=== PATIENT | female | born 1995 | race Caucasian/White ===

== ENCOUNTER 2019-05-05 22:35 | Emergency (ER) | payer MEDICAID ==
--- NOTE | 2019-05-05 23:19 | EDM.PDOC ---
Addendum entered and electronically signed by Leesa Borja MD 05/06/19 01: 40: Please note that the patient has an allergy to Keflex so I will give her Macrodantin/nitrofurantoin for home. Original Note: <Leesa Borja - Last Filed: 05/06/19 01:15> ED HPI GENERAL MEDICAL PROBLEM - General Chief Complaint: ASPARAGUS BUNCHER Problem Stated Complaint: PT 6WKS AND BLEEDING Time Seen by Provider: 05/05/19 22:49 - History of Present Illness INITIAL COMMENTS - FREE TEXT/NARRATIVE: This is Dr. Borja dictating an addendum note as this case has been endorsed to me at 12 midnight. I reviewed the patient's labs and she does have evidence of a UTI and a urine culture was ordered. Pelvic ultrasound indicates a live IUP at 6 weeks with a trace subchorionic hemorrhage and an ovarian cyst. These also have been relayed to the patient and I will give her Keflex for her UTI and advised close follow-up and care. She's been advised for strict pelvic rest. Please add to impression above--UTI - Related Data Allergies Allergy/AdvReac Type Severity Reaction Status Date / Time cephalexin [From Keflex] Allergy Rash Verified 05/05/19 22:56 sulfamethoxazole Allergy Hives Verified 05/05/19 22:57 [From Septra] trimethoprim [From Septra] Allergy Hives Verified 05/05/19 22:57 Home Meds: Home Meds . [No Known Home Meds] 05/05/19 [History] ED ROS GENERAL - Review of Systems Review Of Systems: ROS reveals no pertinent complaints other than HPI. Course - Vital Signs Last Recorded V/S: Last Vital Signs Temp 36.3 C 05/05/19 22:59 Pulse 95 05/05/19 22:59 Resp 18 05/05/19 22:59 BP 99/65 05/05/19 22:59 Pulse Ox 98 05/05/19 22:59 - Orders/Labs/Meds Orders: Active Orders 24 hr Category Date Time Status CULTURE URINE [RM] Stat Lab 05/06/19 00:25 Received Labs: Laboratory Tests 05/05/19 05/05/19 05/05/19 Range/Units 23:03 23:03 23:03 WBC 9.45 (4.0-11.0) K/uL RBC 4.65 (4.30-5.90) M/uL Hgb 14.3 (12.0-16.0) g/dL Hct 40.3 (36.0-46.0) % MCV 86.7 (80.0-98.0) fL MCH 30.8 (27.0-32.0) pg MCHC 35.5 (31.0-37.0) g/dL RDW Std Deviation 38.7 (28.0-62.0) fl RDW Coeff of [place] 12 (11.0-15.0) % Plt Count 270 (150-400) K/uL MPV 9.10 (7.40-12.00) fL Neut % (Auto) 61.2 (48.0-80.0) % Lymph % (Auto) 32.8 (16.0-40.0) % [place] % (Auto) 4.6 (0.0-15.0) % Eos % (Auto) 1.2 (0.0-7.0) % Baso % (Auto) 0.2 (0.0-1.5) % Neut # (Auto) 5.8 H (1.4-5.7) K/uL Lymph # (Auto) 3.1 H (0.6-2.4) K/uL [place] # (Auto) 0.4 (0.0-0.8) K/uL Eos # (Auto) 0.1 (0.0-0.7) K/uL Baso # (Auto) 0.0 (0.0-0.1) K/uL Nucleated RBC % 0.0 /100WBC Nucleated RBCs # 0 K/uL Sodium 139 (136-145) mmol/L Potassium 3.4 L (3.5-5.1) mmol/L Chloride 105 (98-107) mmol/L Carbon Dioxide 23.3 (21.0-32.0) mmol/L BUN 8 (7.0-18.0) mg/dL Creatinine 0.6 (0.6-1.0) mg/dL Est Cr Clr Drug Dosing 103.85 mL/min Estimated GFR (MDRD) > 60.0 ml/min Glucose 114 H (74-106) mg/dL Calcium 9.3 (8.5-10.1) mg/dL Total Bilirubin 0.2 (0.2-1.0) mg/dL AST 13 L (15-37) IU/L ALT 18 (14-63) IU/L Alkaline Phosphatase 63 (46-116) U/L Total Protein 6.9 (6.4-8.2) g/dL Albumin 3.4 (3.4-5.0) g/dL Globulin 3.5 (2.6-4.0) g/dL Albumin/Globulin Ratio 1.0 (0.9-1.6) HCG, Qual (NEG) HCG, Quant 62698.0 mIU/mL Urine Color Urine Appearance Urine pH (5.0-8.0) Ur Specific [place] (1.001-1.035) Urine Protein (NEGATIVE) mg/dL Urine Glucose (UA) (NEGATIVE) mg/dL Urine Ketones (NEGATIVE) mg/dL Urine Occult Blood (NEGATIVE) Urine Nitrite (NEGATIVE) Urine Bilirubin (NEGATIVE) Urine Urobilinogen (<2.0) EU/dL Ur Leukocyte Esterase (NEGATIVE) Urine RBC (0-2/HPF) Urine WBC (0-5/HPF) Ur Epithelial Cells (NONE-FEW) Amorphous Sediment (NEGATIVE) Urine Bacteria (NEGATIVE) Urine Mucus (NONE-MOD) Blood Type O POSITIVE 05/05/19 05/05/19 Range/Units 23:03 23:32 WBC (4.0-11.0) K/uL RBC (4.30-5.90) M/uL Hgb (12.0-16.0) g/dL Hct (36.0-46.0) % MCV (80.0-98.0) fL MCH (27.0-32.0) pg MCHC (31.0-37.0) g/dL RDW Std Deviation (28.0-62.0) fl RDW Coeff of [place] (11.0-15.0) % Plt Count (150-400) K/uL MPV (7.40-12.00) fL Neut % (Auto) (48.0-80.0) % Lymph % (Auto) (16.0-40.0) % [place] % (Auto) (0.0-15.0) % Eos % (Auto) (0.0-7.0) % Baso % (Auto) (0.0-1.5) % Neut # (Auto) (1.4-5.7) K/uL Lymph # (Auto) (0.6-2.4) K/uL [place] # (Auto) (0.0-0.8) K/uL Eos # (Auto) (0.0-0.7) K/uL Baso # (Auto) (0.0-0.1) K/uL Nucleated RBC % /100WBC Nucleated RBCs # K/uL Sodium (136-145) mmol/L Potassium (3.5-5.1) mmol/L Chloride (98-107) mmol/L Carbon Dioxide (21.0-32.0) mmol/L BUN (7.0-18.0) mg/dL Creatinine (0.6-1.0) mg/dL Est Cr Clr Drug Dosing mL/min Estimated GFR (MDRD) ml/min Glucose (74-106) mg/dL Calcium (8.5-10.1) mg/dL Total Bilirubin (0.2-1.0) mg/dL AST (15-37) IU/L ALT (14-63) IU/L Alkaline Phosphatase (46-116) U/L Total Protein (6.4-8.2) g/dL Albumin (3.4-5.0) g/dL Globulin (2.6-4.0) g/dL Albumin/Globulin Ratio (0.9-1.6) HCG, Qual POSITIVE H (NEG) HCG, Quant mIU/mL Urine Color YELLOW Urine Appearance CLOUDY Urine pH 7.0 (5.0-8.0) Ur Specific [place] 1.020 (1.001-1.035) Urine Protein NEGATIVE (NEGATIVE) mg/dL Urine Glucose (UA) NEGATIVE (NEGATIVE) mg/dL Urine Ketones NEGATIVE (NEGATIVE) mg/dL Urine Occult Blood LARGE H (NEGATIVE) Urine Nitrite NEGATIVE (NEGATIVE) Urine Bilirubin NEGATIVE (NEGATIVE) Urine Urobilinogen 0.2 (<2.0) EU/dL Ur Leukocyte Esterase NEGATIVE (NEGATIVE) Urine RBC 0-2 (0-2/HPF) Urine WBC 8-11 (0-5/HPF) Ur Epithelial Cells MODERATE (NONE-FEW) Amorphous Sediment MODERATE (NEGATIVE) Urine Bacteria 2+ H (NEGATIVE) Urine Mucus MODERATE (NONE-MOD) Blood Type Departure - Departure Time of Disposition: 01:16 Disposition: Home, Self-Care 01 Condition: Good Clinical Impression: Threatened UTI (urinary tract infection) Qualifiers: Urinary tract infection type: site unspecified Hematuria presence: without hematuria Qualified Code(s): N39.0 - Urinary tract infection, site not specified - Discharge Information Instructions: Threatened Miscarriage, Urinary Tract Infection, Adult, Easy-to- Read Referrals: PCP,None [Primary Care Provider] - Forms: ED Department Discharge Additional Instructions: The following information is given to patients seen in the emergency department who are being discharged to home. This information is to outline your options for follow-up care. We provide all patients seen in our emergency department with a follow-up referral. The need for follow-up, as well as the timing and circumstances, are variable depending upon the specifics of your emergency department visit. If you don't have a primary care physician on staff, we will provide you with a referral. We always advise you to contact your personal physician following an emergency department visit to inform them of the circumstance of the visit and for follow-up with them and/or the need for any referrals to a consulting specialist. The emergency department will also refer you to a specialist when appropriate. This referral assures that you have the opportunity for follow-up care with a specialist. All of these measure are taken in an effort to provide you with optimal care, which includes your follow-up. Under all circumstances we always encourage you to contact your private physician who remains a resource for coordinating your care. When calling for follow-up care, please make the office aware that this follow-up is from your recent emergency room visit. If for any reason you are refused follow-up, please contact the Emergency Department at and asked to speak to the emergency department charge nurse. [facility] [address] [place] [id number] 1. Use Tylenol as directed for pain and discomfort. Take medication as prescribed. You have been given nitrofurantoin for the infection 2. Follow-up with a an ACCOUNT DEVELOPMENT EXECUTIVE M.D. and you have been given resources above. Strict pelvic rest and nothing in vagina until you're followed up in the clinic Return to the ED as needed and as discussed. <Tianna Byrd - Last Filed: 05/06/19 08:08> ED HPI GENERAL MEDICAL PROBLEM - General Source of Information: Reports: Patient History Limitations: Reports: No Limitations - History of Present Illness INITIAL COMMENTS - FREE TEXT/NARRATIVE: HISTORY AND PHYSICAL: History of present illness: Patient is a 23-year-old female presents to the ED today with concern of vaginal bleeding and cramping in early . Patient states she believes to be approximately 6 weeks in gestation. Patient states over the course of the last week she has had pink spotting only when she wiped. Patient states starting today it has turned bright red and has now needed to use a pad. Patient states she is only used one pad since onset of symptoms today. Patient states along with the bleeding she also has had lower abdominal cramping. Patient denies any other symptoms or concerns at this time. Patient denies fever, chills, chest pain, shortness of breath, or cough. Denies headache, neck stiff ness, change in vision, syncope, or near syncope. Denies nausea, vomiting, diarrhea, constipation, or dysuria. Has not noted any blood in urine or stool. Patient has been eating and drinking appropriately. Review of systems: As per history of present illness and below otherwise all systems reviewed and negative. Past medical history: As per history of present illness and as reviewed below otherwise noncontributory. Surgical history: As per history of present illness and as reviewed below otherwise noncontributory. Social history: See social history for further information Family history: As per history of present illness and as reviewed below otherwise noncontributory. Physical exam: General: Patient is alert, oriented, and in no acute distress. Patient sitting comfortably on exam table. HEENT: Atraumatic, normocephalic, pupils equal and reactive bilaterally, negative for conjunctival pallor or scleral icterus, mucous membranes moist, TMs normal bilaterally, throat clear, neck supple, nontender, trachea midline. No drooling or trismus noted. No meningeal signs. No hot potato voice noted. Lungs: Clear to auscultation, breath sounds equal bilaterally, chest nontender. Heart: S1S2, regular rate and rhythm without overt murmur Abdomen: Soft, nondistended. Mild suprapubic tenderness. Negative for masses or hepatosplenomegaly. Negative for costovertebral tenderness. Pelvis: Stable nontender. Genitourinary: Deferred. Rectal: Deferred. Skin: Intact, warm, dry. No lesions or rashes noted. Extremities: Atraumatic, negative for cords or calf pain. Neurovascular unremarkable. Neuro: Awake, alert, oriented. Cranial nerves II through XII unremarkable. Cerebellum unremarkable. Motor and sensory unremarkable throughout. Exam nonfocal. Notes: Discussed the importance for follow-up with her ASPARAGUS BUNCHER/women's health provider. Voices understanding and is agreeable to plan of care. Denies any further questions or concerns at this time. Diagnostics: CBC, CMP, UA, hCG Quant/Qual, blood type, 1st trimester US Therapeutics: None Prescription: None Impression: Threatened Plan: 1. Please start and/or continue to take your vitamin with folic acid once daily. 2. Pelvic rest until cleared by your OBGYN (no tampons, sex, etc...) 3. Tylenol as needed for pain management. This is safe to use in . 4. Follow up with your ASPARAGUS BUNCHER as discussed. Return to the ED as needed and as discussed. Definitive disposition and diagnosis as appropriate pending reevaluation and review of above. lower abdominal Pain Score (Numeric/FACES): 4 Past Medical History HEENT History: Reports: None Cardiovascular History: Reports: None Respiratory History: Reports: None Gastrointestinal History: Reports: None Genitourinary History: Reports: None ASPARAGUS BUNCHER History: Reports: Spontaneous Musculoskeletal History: Reports: None Neurological History: Reports: None Psychiatric History: Reports: None Endocrine/Metabolic History: Reports: None Hematologic History: Reports: None Oncologic (Cancer) History: Reports: None Dermatologic History: Reports: None - Infectious Disease History Infectious Disease History: Reports: Chicken Pox Social & Family History - Family History Family Medical History: Noncontributory - Tobacco Use Smoking Status *Q: Current Every Day Smoker Years of Tobacco use: 10 Packs/Tins Daily: 1 - Recreational Drug Use Recreational Drug Use: No ED ROS GENERAL - Review of Systems Review Of Systems: ROS reveals no pertinent complaints other than HPI. ED EXAM, GENERAL - Physical Exam Exam: See Below (See dictation)
[2019-05-05 23:48] LABS: BLOOD UREA NITROGEN,BUN 8 mg/dL (7.0-18.0); CARBON DIOXIDE,CO2 23.3 mmol/L (21.0-32.0); CHLORIDE,CL 105 mmol/L (98-107); GLUCOSE RANDOM 114 mg/dL (74-106); POTASSIUM,K 3.4 mmol/L (3.5-5.1); SODIUM,NA 139 mmol/L (136-145)
--- NOTE | 2019-05-06 01:17 | US ---
INDICATION: Vaginal spotting with pelvic cramping TECHNIQUE: Ultrasound OB pelvis transvaginal. Real time neri scale imaging of the pelvis was performed. COMPARISON: None FINDINGS: Gestational sac: Sonographic imaging demonstrates a single intrauterine gestation with a normal appearance. A trace subchorionic hemorrhage is noted.The amount of fluid within the sac appears appropriate for gestational age. Fetus: The embryo demonstrates a regular cardiac rate measuring 114 beats per minute. The embryo`s crown rump length measurement of 3 mm corresponds to a gestational age of 6 weeks. There are no gross abnormalities noted within the embryo at this early state of development. There is a normal appearing yolk sac. Placenta: The placenta has not yet developed. Pelvis: The visualized cervix is closed. The visualized myometrium appears normal. There is a septated cyst in the right ovary measuring 11 x 8 mm.. No significant ascites noted. IMPRESSION: 1. Single viable intrauterine with an estimated gestational age of 6 weeks. 2. A trace subchorionic hemorrhage is noted. Dictated by Jarett Muller MD @ 05/06/2019 1:14:40 AM Dictated by: Jarett Muller MD @ 05/06/2019 01:14:44 (Electronically Signed)
== END 2019-05-06 01:45 | disposition home or self-care (01) ==
LOC: MW.ED 22:35
DX: O20.0 Threatened abortion (principal); O23.41 Unspecified infection of urinary tract in pregnancy, first trimester; O99.331 Smoking (tobacco) complicating pregnancy, first trimester; F17.210 Nicotine dependence, cigarettes, uncomplicated; Z3A.01 Less than 8 weeks gestation of pregnancy; Z88.8 Allergy status to other drugs, medicaments and biological substances; Z88.1 Allergy status to other antibiotic agents
CPT/HCPCS: 36415; 76801; 76801-26; 80053; 81001; 84702; 84703; 85025; 86900; 86901; 87086; 99283; 99284-25

== ENCOUNTER 2019-07-03 10:18 | Emergency (ER) | payer MEDICAID ==
[2019-07-03] MEDS ORDERED: Ondansetron 4 MG/2 ML SDV IVPUSH ONE (10:41)
[2019-07-03] MEDS ORDERED: Sodium Chloride 0.9% 1,000 ML IV ONE (10:41)
--- NOTE | 2019-07-03 10:50 | EDM.PDOC ---
ED HPI GENERAL MEDICAL PROBLEM - General Chief Complaint: Gastrointestinal Problem Stated Complaint: DEHYDRATION Time Seen by Provider: 07/03/19 10:36 Source of Information: Reports: Patient History Limitations: Reports: No Limitations - History of Present Illness INITIAL COMMENTS - FREE TEXT/NARRATIVE: HISTORY AND PHYSICAL: History of present illness: Patient is a 24-year-old female presents to the ED today with concern of dehydration, nausea, and vomiting in . Patient states also over the past 1-2 days she's had some burning with urination and is unsure if it is because her urine is more concentrated or she has a urinary tract infection. Patient states she has moved [place] recently and has not established an OB/ PALLET RECTIFIER care. Patient states she does have an SHEARER OPERATOR back in her hometown that she has seen a few times. Patient states she was prescribed Diclegis for nausea from her hometown SHEARER OPERATOR and never picked it up from the pharmacy because of financial reasons. Patient states she has not established care here in [place] also because of financial reasons. Patient states that she has not eaten any solid foods over the past 2 days but has had a few cups of fluids. Patient denies any other symptoms or concerns. Patient denies fever, chills, chest pain, shortness of breath, or cough. Denies headache, neck stiff ness, change in vision, syncope, or near syncope. Denies abdominal pain, diarrhea, constipation. Has not noted any blood in urine or stool, Review of systems: As per history of present illness and below otherwise all systems reviewed and negative. Past medical history: As per history of present illness and as reviewed below otherwise noncontributory. Surgical history: As per history of present illness and as reviewed below otherwise noncontributory. Social history: See social history for further information Family history: As per history of present illness and as reviewed below otherwise noncontributory. Physical exam: General: Patient is alert, oriented, and in no acute distress. Patient sitting comfortably on exam table. HEENT: Atraumatic, normocephalic, pupils equal and reactive bilaterally, negative for conjunctival pallor or scleral icterus, mucous membranes dry, TMs normal bilaterally, throat clear, neck supple, nontender, trachea midline. No drooling or trismus noted. No meningeal signs. No hot potato voice noted. Lungs: Clear to auscultation, breath sounds equal bilaterally, chest nontender. Heart: S1S2, regular rate and rhythm without overt murmur Abdomen: Soft, nondistended, nontender. Negative for masses or hepatosplenomegaly. Negative for costovertebral tenderness. Pelvis: Stable nontender. Genitourinary: Deferred. Rectal: Deferred. Skin: Intact, warm, dry. No lesions or rashes noted. Extremities: Atraumatic, negative for cords or calf pain. Neurovascular unremarkable. Neuro: Awake, alert, oriented. Cranial nerves II through XII unremarkable. Cerebellum unremarkable. Motor and sensory unremarkable throughout. Exam nonfocal. Notes: Discussed the importance for follow-up with her SHEARER OPERATOR/womens health provider and encourage patient to get established care here in [place] as she plans to live here. Voices understanding and is agreeable to plan of care. Denies any further questions or concerns at this time. Diagnostics: CBC, CMP, UA, urine hCG Therapeutics: NS, Zofran Prescription: Macrobid, Pyridium Impression: Urinary tract infection Dehydration Plan: 1. Encourage small but frequent sips of fluid to prevent dehydration. Take medication as prescribed. 2. You can use Tylenol as directed for pain and discomfort. This is safe to use in . 3. Follow-up with an SHEARER OPERATOR/women's health care provider as discussed. Return to the ED as needed and as discussed. Definitive disposition and diagnosis as appropriate pending reevaluation and review of above. left lower back Pain Score (Numeric/FACES): 5 - Related Data Allergies Allergy/AdvReac Type Severity Reaction Status Date / Time cephalexin [From Keflex] Allergy Rash Verified 07/03/19 10:28 sulfamethoxazole Allergy Hives Verified 07/03/19 10:28 [From Septra] trimethoprim [From ] Allergy Hives Verified 07/03/19 10:28 Home Meds: Home Meds . [No Known Home Meds] 05/05/19 [History] Past Medical History HEENT History: Reports: None Cardiovascular History: Reports: None Respiratory History: Reports: None Gastrointestinal History: Reports: None Genitourinary History: Reports: None SHEARER OPERATOR History: Reports: Spontaneous Musculoskeletal History: Reports: None Neurological History: Reports: None Psychiatric History: Reports: None Endocrine/Metabolic History: Reports: None Hematologic History: Reports: None Oncologic (Cancer) History: Reports: None Dermatologic History: Reports: None - Infectious Disease History Infectious Disease History: Reports: Chicken Pox Social & Family History - Family History Family Medical History: Noncontributory - Tobacco Use Smoking Status *Q: Never Smoker - Recreational Drug Use Recreational Drug Use: No ED ROS GENERAL - Review of Systems Review Of Systems: ROS reveals no pertinent complaints other than HPI. ED EXAM, GENERAL - Physical Exam Exam: See Below (See dictation) Course - Vital Signs Last Recorded V/S: Last Vital Signs Temp 96.7 F 07/03/19 10:28 Pulse 98 07/03/19 10:28 Resp 18 07/03/19 10:28 BP 119/62 07/03/19 10:28 Pulse Ox 97 07/03/19 10:28 - Orders/Labs/Meds Orders: Active Orders 24 hr Category Date Time Status CULTURE URINE [RM] Stat Lab 07/03/19 11:38 Received Labs: Laboratory Tests 07/03/19 07/03/19 07/03/19 Range/Units 10:30 10:30 11:38 WBC 7.59 (4.0-11.0) K/uL RBC 4.73 (4.30-5.90) M/uL Hgb 14.3 (12.0-16.0) g/dL Hct 40.5 (36.0-46.0) % MCV 85.6 (80.0-98.0) fL MCH 30.2 (27.0-32.0) pg MCHC 35.3 (31.0-37.0) g/dL RDW Std Deviation 39.0 (28.0-62.0) fl RDW Coeff of [place] 12 (11.0-15.0) % Plt Count 249 (150-400) K/uL MPV 9.20 (7.40-12.00) fL Neut % (Auto) 71.2 (48.0-80.0) % Lymph % (Auto) 25.0 (16.0-40.0) % [place] % (Auto) 2.8 (0.0-15.0) % Eos % (Auto) 0.9 (0.0-7.0) % Baso % (Auto) 0.1 (0.0-1.5) % Neut # (Auto) 5.4 (1.4-5.7) K/uL Lymph # (Auto) 1.9 (0.6-2.4) K/uL [place] # (Auto) 0.2 (0.0-0.8) K/uL Eos # (Auto) 0.1 (0.0-0.7) K/uL Baso # (Auto) 0.0 (0.0-0.1) K/uL Nucleated RBC % 0.0 /100WBC Nucleated RBCs # 0 K/uL Sodium 138 (136-145) mmol/L Potassium 3.4 L (3.5-5.1) mmol/L Chloride 104 (98-107) mmol/L Carbon Dioxide 21.1 (21.0-32.0) mmol/L BUN 5 L (7.0-18.0) mg/dL Creatinine 0.5 L (0.6-1.0) mg/dL Est Cr Clr Drug Dosing 123.54 mL/min Estimated GFR (MDRD) > 60.0 ml/min Glucose 82 (74-106) mg/dL Calcium 8.7 (8.5-10.1) mg/dL Total Bilirubin 0.4 (0.2-1.0) mg/dL AST 21 (15-37) IU/L ALT 25 (14-63) IU/L Alkaline Phosphatase 51 (46-116) U/L Total Protein 7.9 (6.4-8.2) g/dL Albumin 3.4 (3.4-5.0) g/dL Globulin 4.5 H (2.6-4.0) g/dL Albumin/Globulin Ratio 0.8 L (0.9-1.6) Urine Color DARK YELLOW Urine Appearance SLT CLOUDY Urine pH 7.0 (5.0-8.0) Ur Specific [place] 1.015 (1.001-1.035) Urine Protein NEGATIVE (NEGATIVE) mg/dL Urine Glucose (UA) NEGATIVE (NEGATIVE) mg/dL Urine Ketones TRACE H (NEGATIVE) mg/dL Urine Occult Blood NEGATIVE (NEGATIVE) Urine Nitrite NEGATIVE (NEGATIVE) Urine Bilirubin NEGATIVE (NEGATIVE) Urine Urobilinogen 1.0 (<2.0) EU/dL Ur Leukocyte Esterase SMALL H (NEGATIVE) Urine RBC 0-2 (0-2/HPF) Urine WBC 5-10 (0-5/HPF) Ur Epithelial Cells MODERATE (NONE-FEW) Urine Bacteria 1+ H (NEGATIVE) Urine Mucus HEAVY (NONE-MOD) Urine HCG, Qual (NEGATIVE) 07/03/19 Range/Units 11:38 WBC (4.0-11.0) K/uL RBC (4.30-5.90) M/uL Hgb (12.0-16.0) g/dL Hct (36.0-46.0) % MCV (80.0-98.0) fL MCH (27.0-32.0) pg MCHC (31.0-37.0) g/dL RDW Std Deviation (28.0-62.0) fl RDW Coeff of [place] (11.0-15.0) % Plt Count (150-400) K/uL MPV (7.40-12.00) fL Neut % (Auto) (48.0-80.0) % Lymph % (Auto) (16.0-40.0) % [place] % (Auto) (0.0-15.0) % Eos % (Auto) (0.0-7.0) % Baso % (Auto) (0.0-1.5) % Neut # (Auto) (1.4-5.7) K/uL Lymph # (Auto) (0.6-2.4) K/uL [place] # (Auto) (0.0-0.8) K/uL Eos # (Auto) (0.0-0.7) K/uL Baso # (Auto) (0.0-0.1) K/uL Nucleated RBC % /100WBC Nucleated RBCs # K/uL Sodium (136-145) mmol/L Potassium (3.5-5.1) mmol/L Chloride (98-107) mmol/L Carbon Dioxide (21.0-32.0) mmol/L BUN (7.0-18.0) mg/dL Creatinine (0.6-1.0) mg/dL Est Cr Clr Drug Dosing mL/min Estimated GFR (MDRD) ml/min Glucose (74-106) mg/dL Calcium (8.5-10.1) mg/dL Total Bilirubin (0.2-1.0) mg/dL AST (15-37) IU/L ALT (14-63) IU/L Alkaline Phosphatase (46-116) U/L Total Protein (6.4-8.2) g/dL Albumin (3.4-5.0) g/dL Globulin (2.6-4.0) g/dL Albumin/Globulin Ratio (0.9-1.6) Urine Color Urine Appearance Urine pH (5.0-8.0) Ur Specific [place] (1.001-1.035) Urine Protein (NEGATIVE) mg/dL Urine Glucose (UA) (NEGATIVE) mg/dL Urine Ketones (NEGATIVE) mg/dL Urine Occult Blood (NEGATIVE) Urine Nitrite (NEGATIVE) Urine Bilirubin (NEGATIVE) Urine Urobilinogen (<2.0) EU/dL Ur Leukocyte Esterase (NEGATIVE) Urine RBC (0-2/HPF) Urine WBC (0-5/HPF) Ur Epithelial Cells (NONE-FEW) Urine Bacteria (NEGATIVE) Urine Mucus (NONE-MOD) Urine HCG, Qual POSITIVE (NEGATIVE) Meds: Medications Discontinued Medications Generic Name Dose Route Start Last Admin Trade Name Freq PRN Reason Stop Dose Admin Sodium Chloride 1,000 mls @ 999 mls/hr 07/03/19 10:41 07/03/19 10:51 Normal Saline IV 07/03/19 11:41 999 mls/hr BOLUS ONE Administration Ondansetron HCl 4 mg 07/03/19 10:41 07/03/19 10:51 Zofran IVPUSH 07/03/19 10:42 4 mg ONETIME ONE Administration Departure - Departure Time of Disposition: 12:11 Disposition: Home, Self-Care 01 Clinical Impression: UTI, Urinary tract infectious disease, Dehydration - Discharge Information Referrals: PCP,Not In Area [Primary Care Provider] - Forms: ED Department Discharge Additional Instructions: The following information is given to patients seen in the emergency department who are being discharged to home. This information is to outline your options for follow-up care. We provide all patients seen in our emergency department with a follow-up referral. The need for follow-up, as well as the timing and circumstances, are variable depending upon the specifics of your emergency department visit. If you don't have a primary care physician on staff, we will provide you with a referral. We always advise you to contact your personal physician following an emergency department visit to inform them of the circumstance of the visit and for follow-up with them and/or the need for any referrals to a consulting specialist. The emergency department will also refer you to a specialist when appropriate. This referral assures that you have the opportunity for follow-up care with a specialist. All of these measure are taken in an effort to provide you with optimal care, which includes your follow-up. Under all circumstances we always encourage you to contact your private physician who remains a resource for coordinating your care. When calling for follow-up care, please make the office aware that this follow-up is from your recent emergency room visit. If for any reason you are refused follow-up, please contact the [facility] Emergency Department at and asked to speak to the emergency department charge nurse. [facility] Primary Care [address] [place], [place] [id number] [facility] [address] [place] [address] [facility] [address] [place] [address] 1. Encourage small but frequent sips of fluid to prevent dehydration. Take medication as prescribed. 2. You can use Tylenol as directed for pain and discomfort. This is safe to use in . 3. Follow-up with an SHEARER OPERATOR/women's health care provider as discussed. Return to the ED as needed and as discussed. - My Orders Last 24 Hours: My Active Orders 07/03/19 11:38 CULTURE URINE [RM] Stat - Assessment/Plan Last 24 Hours: My Active Orders 07/03/19 11:38 CULTURE URINE [RM] Stat
[2019-07-03 11:11] LABS: BLOOD UREA NITROGEN,BUN 5 mg/dL (7.0-18.0); CARBON DIOXIDE,CO2 21.1 mmol/L (21.0-32.0); CHLORIDE,CL 104 mmol/L (98-107); GLUCOSE RANDOM 82 mg/dL (74-106); POTASSIUM,K 3.4 mmol/L (3.5-5.1); SODIUM,NA 138 mmol/L (136-145)
== END 2019-07-03 12:19 | disposition home or self-care (01) ==
LOC: MW.ED 10:18
DX: O23.42 Unspecified infection of urinary tract in pregnancy, second trimester (principal); O99.282 Endocrine, nutritional and metabolic diseases complicating pregnancy, second trimester; E86.0 Dehydration; Z3A.14 14 weeks gestation of pregnancy; Z88.1 Allergy status to other antibiotic agents; Z88.2 Allergy status to sulfonamides
CPT/HCPCS: 36415; 80053; 81001; 81025; 85025; 87086; 96361; 96374; 99284; J2405; J7040; 99283

== ENCOUNTER 2019-12-22 22:57 | Observation (INO) | payer MEDICAID ==
[2019-12-23] MEDS ORDERED: Sodium Chloride 0.9% 10 ML Syringe FLUSH PRN (00:45)
[2019-12-23] MEDS ORDERED: Nalbuphine 10 MG/1 ML Vial IVPUSH PRN (00:45)
[2019-12-23] MEDS ORDERED: Oxytocin/0.9 % Sodium Chloride 30 UNIT/500 ML BAG IV SCH (00:45)
[2019-12-23] MEDS ORDERED: Sodium Chloride 0.9% 2.5 ML Syringe FLUSH PRN (00:45)
[2019-12-23] MEDS ORDERED: Methylergonovine 0.2 MG/1 ML Amp IM PRN (00:45)
[2019-12-23] MEDS ORDERED: Misoprostol 200 MCG Tab PO PRN (00:45)
[2019-12-23] MEDS ORDERED: Carboprost Tromethamine 250 MCG/1 ML Amp IM PRN (00:45)
[2019-12-23] MEDS ORDERED: Lidocaine 1% 50 ML MDV INJECT PRN (00:45)
[2019-12-23] MEDS ORDERED: Lactated Ringers 1,000 ML IV SCH (00:45)
[2019-12-23] MEDS ORDERED: Tranexamic Acid 1,000 MG in Sodium Chloride 0.9% 100 ML IV PRN (00:45)
[2019-12-23] MEDS ORDERED: Butorphanol 1 MG/ML SDV IVPUSH PRN (00:45)
[2019-12-23] MEDS ORDERED: Water For Irrigation,Sterile 1,000 ML Container IRR PRN (00:45)
[2019-12-23] MEDS ORDERED: Sodium Chloride 0.9% 10 ML SDV IV PRN (00:45)
[2019-12-23] MEDS ORDERED: Famotidine 20 MG Tab PO ONE (08:07)
[2019-12-23] MEDS ORDERED: Famotidine 20 MG Tab ONE (08:10)
--- NOTE | 2020-01-11 14:56 | PN ---
This is for the observation admission for 12/23/2019. Ms. Turner is 24-year-old patient. She is term. She came to Labor and Delivery with irregular contractions and painful contraction. However, the patient's vital signs are stable and heart rate essentially is normal. The patient was examined twice. She was not dilated. However, because the patient lived not close to the hospital, and we will like to observe her for extended period of time, the patient is admitted for observation and later on after 12-hour observation there was no change in her status, so the patient was discharged home with instructions to be followed in the clinic. REBECCA / SAEED /[id number]
== END 2019-12-23 09:51 | disposition home or self-care (01) ==
LOC: MW.OB 22:57 → MW.OBCHECK 22:57 → MW.OB 12-23 00:30 → MW.OBCHECK 12-23 00:30
PROVIDERS: ADMIT Obstetrics & Gynecology; ATTEND Obstetrics & Gynecology
DX: O47.1 False labor at or after 37 completed weeks of gestation (principal); Z3A.39 39 weeks gestation of pregnancy
CPT/HCPCS: 36415; 59025; 84112; 85027; 86592; 86593; 86850; 86900; 86901; 96374; A9270; G0378; J2300; J7120

== ENCOUNTER 2019-12-29 00:18 | Inpatient (IN) | payer MEDICAID ==
[2019-12-29] MEDS ORDERED: Sodium Chloride 0.9% 10 ML Syringe FLUSH PRN (00:45)
[2019-12-29] MEDS ORDERED: Methylergonovine 0.2 MG/1 ML Amp IM PRN (00:45)
[2019-12-29] MEDS ORDERED: Oxytocin/0.9 % Sodium Chloride 30 UNIT/500 ML BAG IV SCH ×3 (00:45→02:15)
[2019-12-29] MEDS ORDERED: Tranexamic Acid 1,000 MG in Sodium Chloride 0.9% 100 ML IV PRN (00:45)
[2019-12-29] MEDS ORDERED: Lidocaine 1% 50 ML MDV INJECT PRN (00:45)
[2019-12-29] MEDS ORDERED: Carboprost Tromethamine 250 MCG/1 ML Amp IM PRN (00:45)
[2019-12-29] MEDS ORDERED: Misoprostol 25 MCG (1/4 of 100 MCG) Tab PO PRN (00:45)
[2019-12-29] MEDS ORDERED: Butorphanol 1 MG/ML SDV IVPUSH PRN (00:45)
[2019-12-29] MEDS ORDERED: Misoprostol 25 MCG (1/4 of 100 MCG) Tab VAG PRN (00:45)
[2019-12-29] MEDS ORDERED: Water For Irrigation,Sterile 1,000 ML Container IRR PRN (00:45)
[2019-12-29] MEDS ORDERED: Sodium Chloride 0.9% 10 ML SDV IV PRN (00:45)
[2019-12-29] MEDS ORDERED: Misoprostol 200 MCG Tab PO PRN (00:45)
[2019-12-29] MEDS ORDERED: Terbutaline 1 MG/ML SDV SUBCUT PRN (00:45)
[2019-12-29] MEDS ORDERED: Sodium Chloride 0.9% 2.5 ML Syringe FLUSH PRN (00:45)
[2019-12-29] MEDS ORDERED: Calcium Carbonate 500 MG Tab.Chew PO PRN (02:15)
[2019-12-29] MEDS ORDERED: Calcium Carbonate 500 MG Tab.Chew ONE (02:21)
[2019-12-29] MEDS: Nalbuphine 10 MG/1 ML Vial IVPUSH PRN ×2 (02:36→04:05)
[2019-12-29] MEDS: Lactated Ringers 1,000 ML IV SCH ×5 (02:38→11:45)
[2019-12-29] MEDS ORDERED: Morphine 10 MG/ML Syringe IVPUSH ONE (04:30)
[2019-12-29] MEDS ORDERED: Promethazine 25 MG/ML SDV IM ONE (04:33)
[2019-12-29] MEDS ORDERED: fentaNYL 100 MCG/2 ML SDV ONE ×2 (06:16→17:34)
[2019-12-29] MEDS ORDERED: Ropivacaine HCl/PF 100 ML ONE ×2 (06:16→17:33)
[2019-12-29] MEDS ORDERED: Ropivacaine 0.2% PF 2 MG/ML 20 ML SDV ONE (06:16)
--- NOTE | 2019-12-29 06:22 | PCM.LDHP ---
L&D History of Present Illness - General Date of Service: 12/29/19 Admit Problem/Dx: Patient Status Order with Admit Dx/Problem 12/29/19 00:45 Patient Status [ADT] Routine Admission Diagnosis/Problem Admission Diagnosis/Problem - planned 12/29/19 06:19 Ping is a 24 yo at 40.0 weeks that presents today for elective IOL. O pos , RI, GBS neg. 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 Source of Information: Patient History Limitations: Reports: No Limitations - History of Present Illness Pain Score: 5 Associated Symptoms: Reports: N - Related Data Allergies/Adverse Reactions: Allergies Allergy/AdvReac Type Severity Reaction Status Date / Time cephalexin [From Keflex] Allergy Rash Verified 12/22/19 23:17 sulfamethoxazole Allergy Hives Verified 12/22/19 23:17 [From Septra] trimethoprim [From Septra] Allergy Hives Verified 12/22/19 23:17 Home Medications: Home Meds Pnv No.103/Folic/Om3s/Fish Oil [ Gummies] 1 each PO DAILY 09/01/19 [ History] Past Medical History HEENT History: Reports: Otitis Media (Not current) Cardiovascular History: Reports: None Respiratory History: Reports: None Gastrointestinal History: Reports: None Genitourinary History: Reports: UTI, Recurrent (Not current) 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: , Spontaneous (X3) : 3 Para: 0 LMP (Approximate): Musculoskeletal History: Reports: None Other Musculoskeletal History: L4-L5 bulging disc Neurological History: Reports: Other (See Below) Other Neuro History: Siaticia Psychiatric History: Reports: Anxiety, Bipolar, Depression, Panic Attack, Suicide Attempt Other Psychiatric History: Suicidal attempt [id number] Endocrine/Metabolic History: Reports: None Hematologic History: Reports: None Immunologic History: Reports: None Oncologic (Cancer) History: Reports: None Dermatologic History: Reports: None - Infectious Disease History Infectious Disease History: Reports: Chicken Pox - Past Surgical History HEENT Surgical History: Reports: None Cardiovascular Surgical History: Reports: None Respiratory Surgical History: Reports: None GI Surgical History: Reports: None Female Surgical History: Reports: None Neurological Surgical History: Reports: None Musculoskeletal Surgical History: Reports: None Social & Family History - Family History Family Medical History: Noncontributory HEENT: Reports: Cataract, Otitis Media Cardiac: Reports: Bypass, Hypertension, [place] Respiratory: Reports: Sleep Apnea : Reports: Other (See Below) Other Family History: Kidney replacement x2 OBGYN: Reports: Musculoskeletal: Reports: Arthritis Neurological: Reports: CVA Psychiatric: Reports: Depression Endocrine/Metabolic: Reports: Diabetes, Type I Dermatologic: Reports: Eczema Oncologic: Reports: Breast, Skin - Tobacco Use Smoking Status *Q: Never Smoker Second Hand Smoke Exposure: No - Caffeine Use Caffeine Use: Reports: Soda - Recreational Drug Use Recreational Drug Use: No H&P Review of Systems - Review of Systems: Review Of Systems: Comprehensive ROS is negative, except as noted in HPI. General: Reports: No Symptoms HEENT: Reports: No Symptoms Pulmonary: Reports: No Symptoms Cardiovascular: Reports: No Symptoms Gastrointestinal: Reports: No Symptoms Genitourinary: Reports: No Symptoms Musculoskeletal: Reports: No Symptoms Skin: Reports: No Symptoms Psychiatric: Reports: No Symptoms Neurological: Reports: No Symptoms Hematologic/Lymphatic: Reports: No Symptoms Immunologic: Reports: No Symptoms L&D Exam - Exam Exam: See Below - Vital Signs Weight: 153 lb - OB Specific Fundal Height In cm: 40 Heart Tones per Min: 125 Heart Rate (FHR) Variability: Moderate (6-25 bmp) Presentation: Vertex - Hunter Score Hunter Score Cervix Position: Posterior Hunter Score Consistency: Medium Hunter Score Effacement: 51-70% Hunter Score Dilation: 1-2 cm Hunter Score Infant's Station: -2 Hunter Score Total: 5 - Exam General: Alert, Oriented HEENT: Conjunctiva Clear, EACs Clear, EOMI, Hearing Intact, Mucosa Moist & [place] , PERRLA Neck: Supple, Trachea Midline Lungs: Clear to Auscultation, Normal Respiratory Effort Cardiovascular: Regular Rate, Regular Rhythm GI/Abdominal Exam: Normal Bowel Sounds, Soft, Non-Tender, No Organomegaly, No Distention, Other (Gravid uterus) Rectal Exam: Deferred Genitourinary: Normal external exam, Normal bimanual exam, Vaginal bleeding (LOF , clear; bloody show) Back Exam: Normal Inspection, Full Range of Motion Extremities: Normal Inspection, Normal Range of Motion, Non-Tender, No Pedal Edema, Normal Capillary Refill Skin: Warm, Dry, Intact Neurological: Strength Equal Bilateral, Normal Speech, Sensation Intact Psychiatric: Alert, Normal Affect, Normal Mood - Patient Data Lab Results Last 24 hrs: Laboratory Results - last 24 hr 12/29/19 12/29/19 Range/Units 01:15 01:15 WBC 7.78 (4.0-11.0) K/uL RBC 4.20 L (4.30-5.90) M/uL Hgb 12.4 (12.0-16.0) g/dL Hct 35.8 L (36.0-46.0) % MCV 85.2 (80.0-98.0) fL MCH 29.5 (27.0-32.0) pg MCHC 34.6 (31.0-37.0) g/dL RDW Std Deviation 37.3 (28.0-62.0) fl RDW Coeff of [place] 12 (11.0-15.0) % Plt Count 223 (150-400) K/uL MPV 10.10 (7.40-12.00) fL Blood Type O POSITIVE Antibody Screen NEGATIVE Result Diagrams: 12/29/19 01:15 - Problem List (1) Encounter for induction of labor SNOMED Code(s): 607490046 ICD Code: Z34.90 - ENCNTR FOR SUPRVSN OF NORMAL , UNSP, UNSP TRIMESTER Status: Acute Priority: High Current Visit: Yes (2) Normal in third trimester SNOMED Code(s): 37744579, 74930382 ICD Code: Z34.93 - ENCNTR FOR SUPRVSN OF NORMAL PREG, UNSP, THIRD TRIMESTER Status: Acute Priority: High Current Visit: Yes (3) 40 weeks gestation of SNOMED Code(s): 07190410 ICD Code: Z3A.40 - 40 WEEKS GESTATION OF Status: Acute Priority : High Current Visit: Yes Problem List Initiated/Reviewed/Updated: Yes Orders Last 24hrs: Active Orders 24 hr Category Date Time Status Patient Status [ADT] Routine ADT 12/29/19 00:45 Active Communication Order [RC] ASDIRECTED Care 12/29/19 00:45 Active Communication Order [RC] ASDIRECTED Care 12/29/19 00:45 Active Communication Order [RC] ASDIRECTED Care 12/29/19 00:45 Active Heart Tones [RC] CONTINUOUS Care 12/29/19 00:45 Active Non Stress Test [RC] PER UNIT ROUTINE Care 12/29/19 00:45 Active May Shower [RC] ASDIRECTED Care 12/29/19 00:45 Active Notify Provider [RC] PRN Care 12/29/19 00:45 Active Notify Provider [RC] PRN Care 12/29/19 00:45 Active Notify Provider [RC] PRN Care 12/29/19 00:45 Active Notify Provider [RC] STAT Care 12/29/19 00:45 Active Oxygen Therapy [RC] ASDIRECTED Care 12/29/19 00:45 Active Up ad Sun [RC] ASDIRECTED Care 12/29/19 00:45 Active Vaginal Exam [RC] PRN Care 12/29/19 00:45 Active Vital Signs [RC] PER UNIT ROUTINE Care 12/29/19 00:45 Active RPR (SYPHILIS SERO) W/ RFLX [REF] Routine Lab 12/29/19 01:15 Received Butorphanol [Stadol] Med 12/29/19 00:45 Active 1 mg IVPUSH Q1H PRN Calcium Carbonate [Tums] Med 12/29/19 02:15 Active 1,000 mg PO Q2HR PRN Carboprost Tromethamine [Hemabate DS] Med 12/29/19 00:45 Active 250 mcg IM ASDIRECTED PRN Lactated Ringers [Ringers, Lactated] 1,000 ml Med 12/29/19 00:45 Active IV ASDIRECTED Lidocaine 1% [Xylocaine 1%] Med 12/29/19 00:45 Active 50 ml INJECT ONETIME PRN Methylergonovine [Methergine] Med 12/29/19 00:45 Active 0.2 mg IM ASDIRECTED PRN Nalbuphine [Nubain] Med 12/29/19 00:45 Active 10 mg IVPUSH Q1H PRN Oxytocin/0.9 % Sodium Chloride [Oxytocin 30 Unit/500 ML Med 12/29/19 00:45 Active -NS] 30 unit in 500 ml IV TITRATE Oxytocin/0.9 % Sodium Chloride [Oxytocin 30 Unit/500 ML Med 12/29/19 00:45 Active -NS] 30 unit in 500 ml IV TITRATE Oxytocin/0.9 % Sodium Chloride [Oxytocin 30 Unit/500 ML Med 12/29/19 02:15 Active -NS] 30 unit in 500 ml IV TITRATE Sodium Chloride 0.9% [Normal Saline] Med 12/29/19 00:45 Active 10 ml IV ASDIRECTED PRN Sodium Chloride 0.9% [Saline Flush] Med 12/29/19 00:45 Active 10 ml FLUSH ASDIRECTED PRN Sodium Chloride 0.9% [Saline Flush] Med 12/29/19 00:45 Active 2.5 ml FLUSH ASDIRECTED PRN Terbutaline [Brethine] Med 12/29/19 00:45 Active 0.25 mg SUBCUT ASDIRECTED PRN Tranexamic Acid [Cyklokapron] 1,000 mg Med 12/29/19 00:45 Active Sodium Chloride 0.9% [Normal Saline] 100 ml IV ONETIME Water For Irrigation,Sterile [Sterile Water for Med 12/29/19 00:45 Active Irrigation] 1,000 ml IRR ASDIRECTED PRN miSOPROStoL [Cytotec] Med 12/29/19 00:45 Active 200 mcg PO ONETIME PRN miSOPROStoL [Cytotec] Med 12/29/19 00:45 Active 25 mcg PO ONETIME PRN miSOPROStoL [Cytotec] Med 12/29/19 00:45 Active 25 mcg VAG Q4H PRN Scalp Electrode [WOMSER] Per Unit Routine Oth 12/29/19 00:45 Ordered Medication Administration Instruction [OM.PC] Q3H Oth 12/29/19 00:45 Ordered Peripheral IV Insertion Adult [OM.PC] Routine Oth 12/29/19 00:45 Ordered Resuscitation Status Routine Resus Stat 12/29/19 00:45 Ordered Medication Orders Butorphanol Tartrate (Stadol) 1 mg IVPUSH Q1H PRN PRN Reason: Pain Calcium Carbonate/Glycine (Tums) 1,000 mg PO Q2HR PRN PRN Reason: Indigestion Carboprost Tromethamine (Hemabate Ds) 250 mcg IM ASDIRECTED PRN PRN Reason: Post Hemorrhage Lactated Ringer's (Ringers, Lactated) 1,000 mls @ 150 mls/hr IV ASDIRECTED [place] Last Admin: 12/29/19 05:01 Dose: 150 mls/hr Infusion: 12/29/19 05:01 Dose: 150 mls/hr Admin: 12/29/19 02:38 Dose: 150 mls/hr Oxytocin/Sodium Chloride (Oxytocin 30 Unit/500 Ml-Ns) 30 unit in 500 mls @ 500 mls/hr IV TITRATE [place] Oxytocin/Sodium Chloride (Oxytocin 30 Unit/500 Ml-Ns) 30 unit in 500 mls @ 2 mls/hr IV TITRATE [place]; Protocol Tranexamic Acid 1,000 mg/ (Sodium Chloride) 110 mls @ 660 mls/hr IV ONETIME PRN PRN Reason: Bleeding Oxytocin/Sodium Chloride (Oxytocin 30 Unit/500 Ml-Ns) 30 unit in 500 mls @ 2 mls/hr IV TITRATE [place]; Protocol Last Infusion: 12/29/19 04:06 Dose: 6 munits/min, 6 mls/hr Infusion: 12/29/19 03:03 Dose: 4 munits/min, 4 mls/hr Admin: 12/29/19 02:39 Dose: 2 munits/min, 2 mls/hr Lidocaine HCl (Xylocaine 1%) 50 ml INJECT ONETIME PRN PRN Reason: Laceration repair Methylergonovine Maleate (Methergine) 0.2 mg IM ASDIRECTED PRN PRN Reason: Post Hemorrhage Misoprostol (Cytotec) 200 mcg PO ONETIME PRN PRN Reason: Post Hemorrhage Misoprostol (Cytotec) 25 mcg PO ONETIME PRN PRN Reason: Cervical Ripening Misoprostol (Cytotec) 25 mcg VAG Q4H PRN PRN Reason: Cervical Ripening Nalbuphine HCl (Nubain) 10 mg IVPUSH Q1H PRN PRN Reason: Pain (severe 7-10) Last Admin: 12/29/19 04:05 Dose: 10 mg Admin: 12/29/19 02:36 Dose: 10 mg Sodium Chloride (Saline Flush) 10 ml FLUSH ASDIRECTED PRN PRN Reason: Keep Vein Open Sodium Chloride (Saline Flush) 2.5 ml FLUSH ASDIRECTED PRN PRN Reason: Keep Vein Open Sodium Chloride (Normal Saline) 10 ml IV ASDIRECTED PRN PRN Reason: IV Use Sterile Water (Sterile Water For Irrigation) 1,000 ml IRR ASDIRECTED PRN PRN Reason: delivery Terbutaline Sulfate (Brethine) 0.25 mg SUBCUT ASDIRECTED PRN PRN Reason: Tacysystole Assessment/Plan Comment:: Continue with elective IOL POC. See orders.
--- NOTE | 2019-12-29 07:19 | PCM.PREANE ---
Preanesthetic Assessment - Procedure Proposed Procedure: KIRIT - Anesthesia/Transfusion/Family Hx Anesthesia History: Prior Anesthesia Without Reaction Family History of Anesthesia Reaction: No Transfusion History: No Prior Transfusion(s) Intubation History: Unknown - Review of Systems General: No Symptoms Pulmonary: No Symptoms Cardiovascular: No Symptoms Gastrointestinal: No Symptoms Neurological: No Symptoms Other: Reports: Anxiety - Physical Assessment NPO Status Date: 12/29/19 NPO Status Time: 06:00 (Clear liquids) Height: 1.5 m Weight: 69.4 kg ASA Class: 2 Mental Status: Alert & Oriented x3 Airway Class: Mallampati = 2 Dentition: Reports: Normal Dentition Thyro-Mental Finger Breadths: 3 Mouth Opening Finger Breadths: 3 ROM/Head Extension: Full Lungs: Clear to Auscultation Cardiovascular: Regular Rate - Lab Values: Laboratory Last Values WBC 7.78 K/uL (4.0-11.0) 12/29/19 01:15 RBC 4.20 M/uL (4.30-5.90) L 12/29/19 01:15 Hgb 12.4 g/dL (12.0-16.0) 12/29/19 01:15 Hct 35.8 % (36.0-46.0) L 12/29/19 01:15 MCV 85.2 fL (80.0-98.0) 12/29/19 01:15 MCH 29.5 pg (27.0-32.0) 12/29/19 01:15 MCHC 34.6 g/dL (31.0-37.0) 12/29/19 01:15 RDW Std Deviation 37.3 fl (28.0-62.0) 12/29/19 01:15 RDW Coeff of [place] 12 % (11.0-15.0) 12/29/19 01:15 Plt Count 223 K/uL (150-400) 12/29/19 01:15 MPV 10.10 fL (7.40-12.00) 12/29/19 01:15 Blood Type O POSITIVE 12/29/19 01:15 Antibody Screen NEGATIVE 12/29/19 01:15 - Allergies Allergies/Adverse Reactions: Allergies Allergy/AdvReac Type Severity Reaction Status Date / Time cephalexin [From Keflex] Allergy Rash Verified 12/22/19 23:17 sulfamethoxazole Allergy Hives Verified 12/22/19 23:17 [From ] trimethoprim [From ] Allergy Hives Verified 12/22/19 23:17 - Blood Blood Available: No Product(s) Available: None - Anesthesia Plan Pre-Op Medication Ordered: None - Acknowledgements Anesthesia Type Planned: Epidural Pt an Appropriate Candidate for the Planned Anesthesia: Yes Alternatives and Risks of Anesthesia Discussed w Pt/Guardian: Yes Pt/Guardian Understands and Agrees with Anesthesia Plan: Yes Additional Comments: Discussed. ? answered. Permit signed. Acceptable candidate. HEIGHT 1.5m. PreAnesthesia Questionnaire HEENT History: Reports: Otitis Media (Not current) Cardiovascular History: Reports: None Respiratory History: Reports: None Gastrointestinal History: Reports: None Genitourinary History: Reports: UTI, Recurrent (Not current) BRAND DIRECTOR History: Reports: , Spontaneous (X3) Musculoskeletal History: Reports: None Other Musculoskeletal History: L4-L5 bulging disc Neurological History: Reports: Other (See Below) Other Neuro History: Siaticia Psychiatric History: Reports: Anxiety, Bipolar, Depression, Panic Attack, Suicide Attempt Other Psychiatric History: Suicidal attempt [id number] Endocrine/Metabolic History: Reports: None Hematologic History: Reports: None Immunologic History: Reports: None Oncologic (Cancer) History: Reports: None Dermatologic History: Reports: None - Infectious Disease History Infectious Disease History: Reports: Chicken Pox - Past Surgical History HEENT Surgical History: Reports: None Cardiovascular Surgical History: Reports: None Respiratory Surgical History: Reports: None GI Surgical History: Reports: None Female Surgical History: Reports: None Neurological Surgical History: Reports: None Musculoskeletal Surgical History: Reports: None - SUBSTANCE USE Smoking Status *Q: Never Smoker Second Hand Smoke Exposure: No Recreational Drug Use History: No - HOME MEDS Home Medications: Home Meds Pnv No.103/Folic/Om3s/Fish Oil [ Gummies] 1 each PO DAILY 09/01/19 [ History] - CURRENT (IN HOUSE) MEDS Current Meds: Current Medications Butorphanol Tartrate (Stadol) 1 mg IVPUSH Q1H PRN PRN Reason: Pain Calcium Carbonate/Glycine (Tums) 1,000 mg PO Q2HR PRN PRN Reason: Indigestion Carboprost Tromethamine (Hemabate Ds) 250 mcg IM ASDIRECTED PRN PRN Reason: Post Hemorrhage Lactated Ringer's (Ringers, Lactated) 1,000 mls @ 150 mls/hr IV ASDIRECTED [place] Last Admin: 12/29/19 06:33 Dose: 150 mls/hr Oxytocin/Sodium Chloride (Oxytocin 30 Unit/500 Ml-Ns) 30 unit in 500 mls @ 500 mls/hr IV TITRATE [place] Oxytocin/Sodium Chloride (Oxytocin 30 Unit/500 Ml-Ns) 30 unit in 500 mls @ 2 mls/hr IV TITRATE [place]; Protocol Tranexamic Acid 1,000 mg/ (Sodium Chloride) 110 mls @ 660 mls/hr IV ONETIME PRN PRN Reason: Bleeding Oxytocin/Sodium Chloride (Oxytocin 30 Unit/500 Ml-Ns) 30 unit in 500 mls @ 2 mls/hr IV TITRATE [place]; Protocol Last Infusion: 12/29/19 04:06 Dose: 6 munits/min, 6 mls/hr Lidocaine HCl (Xylocaine 1%) 50 ml INJECT ONETIME PRN PRN Reason: Laceration repair Methylergonovine Maleate (Methergine) 0.2 mg IM ASDIRECTED PRN PRN Reason: Post Hemorrhage Misoprostol (Cytotec) 200 mcg PO ONETIME PRN PRN Reason: Post Hemorrhage Misoprostol (Cytotec) 25 mcg PO ONETIME PRN PRN Reason: Cervical Ripening Misoprostol (Cytotec) 25 mcg VAG Q4H PRN PRN Reason: Cervical Ripening Nalbuphine HCl (Nubain) 10 mg IVPUSH Q1H PRN PRN Reason: Pain (severe 7-10) Last Admin: 12/29/19 04:05 Dose: 10 mg Sodium Chloride (Saline Flush) 10 ml FLUSH ASDIRECTED PRN PRN Reason: Keep Vein Open Sodium Chloride (Saline Flush) 2.5 ml FLUSH ASDIRECTED PRN PRN Reason: Keep Vein Open Sodium Chloride (Normal Saline) 10 ml IV ASDIRECTED PRN PRN Reason: IV Use Sterile Water (Sterile Water For Irrigation) 1,000 ml IRR ASDIRECTED PRN PRN Reason: delivery Terbutaline Sulfate (Brethine) 0.25 mg SUBCUT ASDIRECTED PRN PRN Reason: Tacysystole Discontinued Medications Calcium Carbonate/Glycine (Tums) Confirm Administered Dose 1,000 mg .ROUTE .STK- MED ONE Stop: 12/29/19 02:22 Last Admin: 12/29/19 02:37 Dose: 1,000 mg Fentanyl (Sublimaze) Confirm Administered Dose 100 mcg .ROUTE .STK-MED ONE Stop: 12/29/19 06:17 Ropivacaine (Naropin 0.2%) Confirm Administered Dose 100 mls @ as directed .ROUTE .STK-MED ONE Stop: 12/29/19 06:17 Morphine Sulfate (Morphine) 5 mg IVPUSH ONETIME ONE Stop: 12/29/19 04:31 Last Admin: 12/29/19 04:57 Dose: 5 mg Promethazine HCl (Phenergan) 25 mg IM ONETIME ONE Stop: 12/29/19 04:34 Last Admin: 12/29/19 04:57 Dose: 25 mg Ropivacaine (Naropin 0.2%) Confirm Administered Dose 20 ml .ROUTE .STK-MED ONE Stop: 12/29/19 06:17
--- NOTE | 2019-12-29 07:25 | PCM.SN.2 ---
- Free Text/Narrative Note: Requested for KIRIT. , active labor, 3cm, pain 9/10 Prep Chloroprep Skin local 4ml 1% lidocaine @ L3-4. Space on first pass with air/saline mix. Reconfirmed with 3ml saline. Cath to 6cm. Occlusive drsg. TEST DOSE NEGATIVE Bolus given slowly. Pain 2/10 post bolus. Infusion started @ 07:26. VSS. Doing well.
[2019-12-29] MEDS ORDERED: Sodium Chloride 0.9% 1,000 ML IV ONE (11:46)
[2019-12-29] MEDS ORDERED: ePHEDrine 50 MG/ML SDV IVPUSH STA (13:20)
[2019-12-29] MEDS ORDERED: Ondansetron 4 MG/2 ML SDV IVPUSH PRN (13:45)
--- NOTE | 2019-12-29 17:54 | PCM.PRNOTE ---
- Free Text/Narrative Note: Anes NOte Epidural infusion is completed. A new 100 cc bag of 0.2% ropivicaine with 1 mcg cc fentanyl started. Rates is 8 cc hr with 6 cc q 20 min prn bolus. Time with patient [id number] Dillon Vasquez CRNA
[2019-12-29] MEDS ORDERED: oxyCODONE 5 MG Tab PO PRN (20:03)
[2019-12-29] MEDS ORDERED: Bisacodyl 10 MG Supp RECTAL PRN (20:03)
[2019-12-29] MEDS ORDERED: Benzocaine/Menthol 20%-0.5% Spray 78 GM Cannister TOP PRN (20:03)
[2019-12-29] MEDS ORDERED: Lanolin 100% Cream 7 GM Tube TOP PRN (20:03)
[2019-12-29] MEDS ORDERED: Docusate Sodium 100 MG Cap PO PRN (20:03)
[2019-12-29] MEDS ORDERED: Acetaminophen 500 MG Tab PO PRN (20:03)
[2019-12-29] MEDS ORDERED: Witch Hazel Medicated Pads 40/Jar TOP PRN (20:03)
[2019-12-29] MEDS ORDERED: Ibuprofen 400 MG Tab PO PRN (20:03)
[2019-12-29] MEDS: Ibuprofen 800 MG Tab PO PRN (21:52)
[2019-12-30] MEDS: Acetaminophen 500 MG Tab PO PRN ×3 (04:49→16:30)
--- NOTE | 2019-12-30 07:34 | PCM48HPAN ---
Post Anesthesia Note - EVALUATION WITHIN 48HRS OF ANESTHETIC Vital Signs in Normal Range: Yes Patient Participated in Evaluation: Yes Respiratory Function Stable: Yes Airway Patent: Yes Cardiovascular Function Stable: Yes Hydration Status Stable: Yes Pain Control Satisfactory: Yes Nausea and Vomiting Control Satisfactory: Yes Mental Status Recovered: Yes Vital Signs: Last Vital Signs Temp 36.4 C 12/30/19 06:00 Pulse 89 12/30/19 06:00 Resp 16 12/30/19 04:45 BP 98/57 L 12/30/19 06:00 Pulse Ox 96 12/30/19 04:45
--- NOTE | 2019-12-30 07:51 | OR ---
SURGEON: Moreno Ha MD DATE OF PROCEDURE: 12/29/2019 DESCRIPTION: Ms. Turner is a 24-year-old primigravida. She is followed in our clinic primarily by our nurse whipper beater, Marion Altman. Her was uncomplicated. Her GBS status was negative, and she was admitted for elective induction. She was induced with Cytotec and Pitocin. She responded to that. She had a spontaneous rupture of the membrane and progress to 3-4 cm. She had epidural anesthesia for labor analgesia. The patient continued to contract, however, she started having some variable deceleration, although is recovering real quickly and good variability, yet required an amnioinfusion to ameliorate these variable deceleration. The patient progressed to complete-complete, she pushed for almost 2 hours, and she was complete-complete vertex +2. When I came to evaluate her, the patient was exhausted. The heart rate still has some variable deceleration, and the heart rate was category II. On examination of the patient, the fetus is in OT and I was able to rotate her manually to occiput anterior, and after consulting with the patient and explaining to her, a Kiwi vacuum extraction is placed in place, and I was able to deliver the fetus without problem. Episiotomy was needed to accomplish the delivery and the manager hris in attendance of the delivery. The fetus cried immediately. score reported to be 8 and 9, and the weight is 7 pounds 1 ounce. The placenta delivered spontaneous, complete, and intact and then repair of the episiotomy was done with 3-0 Vicryl in layers without any problem. Estimated blood loss is 300 to 350 mL. heart rate was category II, and there was no complication in labor and delivery of this fetus. REBECCA / SAEED /[id number] ANDI
--- NOTE | 2019-12-30 08:28 | PCM.DCSUM1 ---
Discharge Summary - Hospital Course Free Text/Narrative:: Discharge home with infant. Follow up in 6 weeks for or sooner if needed. Diagnosis: Stroke: No Modified Varina Scale: No Symptoms at All Modified Varina Scale Score: 0 - Discharge Data Discharge Date: 12/30/19 Discharge Disposition: Home, Self-Care 01 Condition: Good - Referral to Home Health Primary Care Physician: PCP None - Discharge Diagnosis/Problem(s) (1) Vacuum extractor delivery, delivered SNOMED Code(s): 872349227 ICD Code: O66.5 - ATTEMPTED APPLICATION OF VACUUM EXTRACTOR AND FORCEPS Status: Acute Priority: High Current Visit: Yes - Patient Instructions Diet: Usual Diet as Tolerated Activity: As Tolerated, No Strenuous Activities, Rest and Relax Today Driving: May Drive Today Showering/Bathing: May Shower Notify Provider of: Fever, Increased Pain, Swelling and Redness, Nausea and/or Vomiting - Discharge Plan *PRESCRIPTION DRUG MONITORING PROGRAM REVIEWED*: Not Applicable *COPY OF PRESCRIPTION DRUG MONITORING REPORT IN PATIENT HEIDY: Not Applicable Prescriptions/Med Rec: Ibuprofen [Motrin] 800 mg PO Q6H PRN #90 tablet PRN Reason: Pain Home Medications: Home Meds Pnv No.103/Folic/Om3s/Fish Oil [ Gummies] 1 each PO DAILY 09/01/19 [ History] Ibuprofen [Motrin] 800 mg PO Q6H PRN #90 tablet 12/30/19 [Rx] Oxygen Therapy Mode: Room Air Referrals: [facility] [Outside] Marion Altman CNM [Mid-] - 02/09/20 1:30 pm - Discharge Summary/Plan Comment DC Time >30 min.: Yes - General Info Date of Service: 12/30/19 Admission Dx/Problem (Free Text: Patient Status Order with Admit Dx/Problem 12/29/19 00:45 Patient Status [ADT] Routine Admission Diagnosis/Problem Admission Diagnosis/Problem - planned 12/29/19 06:19 Ping is a 24 yo at 40.0 weeks that presents today for elective IOL. O pos , RI, GBS neg. 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 Functional Status: Reports: Pain Controlled, Tolerating Diet, Ambulating, Urinating - Review of Systems General: Reports: No Symptoms HEENT: Reports: No Symptoms Pulmonary: Reports: No Symptoms Cardiovascular: Reports: No Symptoms Gastrointestinal: Reports: No Symptoms Genitourinary: Reports: No Symptoms Musculoskeletal: Reports: No Symptoms Skin: Reports: No Symptoms Neurological: Reports: No Symptoms Psychiatric: Reports: No Symptoms - Patient Data Vitals - Most Recent: Last Vital Signs Temp 36.4 C 12/30/19 06:00 Pulse 89 12/30/19 06:00 Resp 16 12/30/19 04:45 BP 98/57 L 12/30/19 06:00 Pulse Ox 96 12/30/19 04:45 Weight - Most Recent: 69.4 kg I&O - Last 24 hours: Intake & Output 12/29/19 12/30/19 12/30/19 22:59 06:59 14:59 Output Total 1300 Balance -1300 Lab Results - Last 24 hrs: Laboratory Results - last 24 hr 12/30/19 Range/Units 05:38 Hgb 9.8 L (12.0-16.0) g/dL Hct 29.8 L (36.0-46.0) % Med Orders - Current: Current Medications Acetaminophen (Tylenol Extra Strength) 500 mg PO Q4H PRN PRN Reason: Pain Acetaminophen (Tylenol Extra Strength) 1,000 mg PO Q4H PRN PRN Reason: Pain Last Admin: 12/30/19 04:49 Dose: 1,000 mg Benzocaine/Menthol (Dermoplast Pain Relief 20%-0.5% [place]) 78 gm TOP ASDIRECTED PRN PRN Reason: Perineal Comfort Measure Last Admin: 12/29/19 21:50 Dose: 1 applic Bisacodyl (Dulcolax) 10 mg RECTAL ONETIME PRN PRN Reason: Constipation Butorphanol Tartrate (Stadol) 1 mg IVPUSH Q1H PRN PRN Reason: Pain Calcium Carbonate/Glycine (Tums) 1,000 mg PO Q2HR PRN PRN Reason: Indigestion Carboprost Tromethamine (Hemabate Ds) 250 mcg IM ASDIRECTED PRN PRN Reason: Post Hemorrhage Docusate Sodium (Colace) 100 mg PO BID PRN PRN Reason: Constipation Emollient Ointment (Lansinoh Hpa) 0 gm TOP ASDIRECTED PRN PRN Reason: Sore Nipples Last Admin: 12/29/19 21:51 Dose: 1 applic Lactated Ringer's (Ringers, Lactated) 1,000 mls @ 150 mls/hr IV ASDIRECTED [place] Last Admin: 12/29/19 11:45 Dose: 150 mls/hr Oxytocin/Sodium Chloride (Oxytocin 30 Unit/500 Ml-Ns) 30 unit in 500 mls @ 500 mls/hr IV TITRATE [place] Last Admin: 12/29/19 20:42 Dose: 500 mls/hr Oxytocin/Sodium Chloride (Oxytocin 30 Unit/500 Ml-Ns) 30 unit in 500 mls @ 2 mls/hr IV TITRATE [place]; Protocol Tranexamic Acid 1,000 mg/ (Sodium Chloride) 110 mls @ 660 mls/hr IV ONETIME PRN PRN Reason: Bleeding Oxytocin/Sodium Chloride (Oxytocin 30 Unit/500 Ml-Ns) 30 unit in 500 mls @ 2 mls/hr IV TITRATE [place]; Protocol Last Infusion: 12/29/19 18:12 Dose: 2 munits/min, 2 mls/hr Ibuprofen (Motrin) 400 mg PO Q4H PRN PRN Reason: Pain Ibuprofen (Motrin) 800 mg PO Q6H PRN PRN Reason: Pain Last Admin: 12/29/19 21:52 Dose: 800 mg Lidocaine HCl (Xylocaine 1%) 50 ml INJECT ONETIME PRN PRN Reason: Laceration repair Methylergonovine Maleate (Methergine) 0.2 mg IM ASDIRECTED PRN PRN Reason: Post Hemorrhage Misoprostol (Cytotec) 200 mcg PO ONETIME PRN PRN Reason: Post Hemorrhage Misoprostol (Cytotec) 25 mcg PO ONETIME PRN PRN Reason: Cervical Ripening Misoprostol (Cytotec) 25 mcg VAG Q4H PRN PRN Reason: Cervical Ripening Nalbuphine HCl (Nubain) 10 mg IVPUSH Q1H PRN PRN Reason: Pain (severe 7-10) Last Admin: 12/29/19 04:05 Dose: 10 mg Ondansetron HCl (Zofran) 4 mg IVPUSH Q6H PRN PRN Reason: Nausea/Vomiting Last Admin: 12/29/19 15:15 Dose: 4 mg Oxycodone HCl (Oxycodone) 5 mg PO Q2H PRN PRN Reason: Pain Sodium Chloride (Saline Flush) 10 ml FLUSH ASDIRECTED PRN PRN Reason: Keep Vein Open Sodium Chloride (Saline Flush) 2.5 ml FLUSH ASDIRECTED PRN PRN Reason: Keep Vein Open Sodium Chloride (Normal Saline) 10 ml IV ASDIRECTED PRN PRN Reason: IV Use Sterile Water (Sterile Water For Irrigation) 1,000 ml IRR ASDIRECTED PRN PRN Reason: delivery Terbutaline Sulfate (Brethine) 0.25 mg SUBCUT ASDIRECTED PRN PRN Reason: Tacysystole Witch Jeannette (Tucks) 1 pad TOP ASDIRECTED PRN PRN Reason: comfort care Last Admin: 12/29/19 21:53 Dose: 1 applic Discontinued Medications Calcium Carbonate/Glycine (Tums) Confirm Administered Dose 1,000 mg .ROUTE .STK- MED ONE Stop: 12/29/19 02:22 Last Admin: 12/29/19 02:37 Dose: 1,000 mg Ephedrine Sulfate (Ephedrine Sulfate) 10 mg IVPUSH ONETIME STA Stop: 12/29/19 13:21 Last Admin: 12/29/19 13:37 Dose: 10 mg Fentanyl (Sublimaze) Confirm Administered Dose 100 mcg .ROUTE .STK-MED ONE Stop: 12/29/19 06:17 Fentanyl (Sublimaze) Confirm Administered Dose 100 mcg .ROUTE .STK-MED ONE Stop: 12/29/19 17:35 Ropivacaine (Naropin 0.2%) Confirm Administered Dose 100 mls @ as directed .ROUTE .STK-MED ONE Stop: 12/29/19 06:17 Sodium Chloride (Normal Saline) 1,000 mls @ 999 mls/hr IV .BOLUS ONE Stop: 12/29/19 12:46 Last Infusion: 12/29/19 11:38 Dose: 100 mls/hr Ropivacaine (Naropin 0.2%) Confirm Administered Dose 100 mls @ as directed .ROUTE .STK-MED ONE Stop: 12/29/19 17:34 Morphine Sulfate (Morphine) 5 mg IVPUSH ONETIME ONE Stop: 12/29/19 04:31 Last Admin: 12/29/19 04:57 Dose: 5 mg Promethazine HCl (Phenergan) 25 mg IM ONETIME ONE Stop: 12/29/19 04:34 Last Admin: 12/29/19 04:57 Dose: 25 mg Ropivacaine (Naropin 0.2%) Confirm Administered Dose 20 ml .ROUTE .STK-MED ONE Stop: 12/29/19 06:17 - Exam General: Reports: Alert, Oriented, Cooperative, No Acute Distress Lungs: Reports: Normal Respiratory Effort GI/Abdominal Exam: Soft, Non-Tender (Female) Exam: Deferred, Vaginal Bleeding Rectal (Female) Exam: Deferred Back Exam: Reports: Normal Inspection, Full Range of Motion Extremities: Normal Inspection, Normal Range of Motion, Non-Tender, No Pedal Edema Skin: Reports: Warm, Dry, Intact Wound/Incisions: Reports: Healing Well Neurological: Reports: No New Focal Deficit, Normal Gait, Normal Speech, Normal Tone, Strength Equal Bilateral Psy/Mental Status: Reports: Alert, Normal Affect, Normal Mood
[2019-12-30] MEDS: Ibuprofen 800 MG Tab PO PRN ×2 (10:26→16:31)
== END 2019-12-30 23:59 | disposition home or self-care (01) | DRG 807 ==
LOC: MW.OBCHECK 00:18 → MW.OB 00:19 → OBSVTOIN 19:47 → MW.OB 19:47
PROVIDERS: ADMIT Obstetrics & Gynecology; ATTEND Obstetrics & Gynecology
PROC: 10D07Z6 Extraction of Products of Conception, Vacuum, Via Natural or Artificial Opening (ICD-10-PCS; principal; 2019-12-29)
PROC: 10H07YZ Insertion of Other Device into Products of Conception, Via Natural or Artificial Opening (ICD-10-PCS; 2019-12-29)
PROC: 0W8NXZZ Division of Female Perineum, External Approach (ICD-10-PCS; 2019-12-29)
PROC: 3E0P7VZ Introduction of Hormone into Female Reproductive, Via Natural or Artificial Opening (ICD-10-PCS; 2019-12-29)
PROC: 3E033VJ Introduction of Other Hormone into Peripheral Vein, Percutaneous Approach (ICD-10-PCS; 2019-12-29)
PROC: 3E0R3BZ Introduction of Anesthetic Agent into Spinal Canal, Percutaneous Approach (ICD-10-PCS; 2019-12-29)
PROC: 00HU33Z Insertion of Infusion Device into Spinal Canal, Percutaneous Approach (ICD-10-PCS; 2019-12-29)
DX: O48.0 Post-term pregnancy (principal); Z37.0 Single live birth; Z3A.40 40 weeks gestation of pregnancy; Z88.1 Allergy status to other antibiotic agents; Z88.2 Allergy status to sulfonamides; O76 Abnormality in fetal heart rate and rhythm complicating labor and delivery
CPT/HCPCS: 01967; 36415; 51702; 59025; 59409; 85014; 85018; 85027; 86592; 86593; 86850; 86900; 86901; A9270-GY; J2270; J2300; J2405; J2550; J2590; J2795; J3010; J7030; J7120